=== PATIENT | male | born 1960 | race African-American/Black ===

== ENCOUNTER 2019-05-04 15:42 | Observation (INO) | payer BC ==
[~2019-05-04] VITALS: Ht 175.3 cm; Wt 76.1 kg
[2019-05-04 16:52] LABS: BASO % 0.4 % (0.0-1.0); EOS # 0.3 10^3/uL (0.0-0.5); EOS % 4.9 % (0.0-3.0); HEMATOCRIT 43.4 % (42.0-52.0); LYMPH # 1.7 10^3/uL (1.5-5.0); LYMPH % 30.4 % (24.0-44.0); MEAN CORPUSCULAR HEMOGLOBIN 26.7 pg (27.0-33.0); MEAN CORPUSCULAR HGB CONC 32.3 g/dl (32.0-36.5); MEAN CORPUSCULAR VOLUME 82.7 fl (80.0-96.0); MONO # 0.6 10^3/uL (0.0-0.8); MONO % 9.8 % (0.0-5.0); NEUTROPHILS # 3.1 10^3/uL (1.5-8.5); NEUTROPHILS % 54.3 % (36.0-66.0); PLATELET COUNT, AUTOMATED 227 10^3/uL (150-450); RED BLOOD COUNT 5.25 10^6/uL (4.30-6.10); WHITE BLOOD COUNT 5.7 10^3/uL (4.0-10.0)
[2019-05-04 17:03] LABS: INR 1.11; PARTIAL THROMBOPLASTIN TIME 26.7 SECONDS (25.0-38.4)
--- NOTE | 2019-05-04 17:19 | REPVR ---
PROCEDURE INFORMATION: Exam: US Duplex Left Lower Extremity Veins, Limited Exam date and time: 05/04/2019 4:59 PM Age: 58 years old Clinical indication: Swelling (edema) of limb; Lower extremity, left; Additional info: Swelling to lle R/O dvt TECHNIQUE: Imaging protocol: Real-time Duplex ultrasound of the Left Lower Extremity with 2-D acevedo scale, color Doppler flow and spectral waveform analysis with image documentation. Limited exam focused on the left lower extremity veins. COMPARISON: No relevant prior studies available. FINDINGS: Left deep veins: There is occlusive, noncompressible thrombus in the left common femoral and proximal femoral vein. Nonocclusive thrombus involves the mid to distal femoral and popliteal vein. In the calf, there is again occlusive thrombus in the popliteal vein. Left superficial veins: Not well demonstrated. Soft tissues: Unremarkable. IMPRESSION: Deep venous thrombus through the left lower extremity as described. Electronically signed by: Mike Chan On 05/04/2019 17:19:14 PM
[2019-05-04 17:31] LABS: ALT/SGPT 24 U/L (12-78); BLOOD UREA NITROGEN 12 MG/DL (7-18); CALCIUM LEVEL 9.5 MG/DL (8.5-10.1); CARBON DIOXIDE LEVEL 28 MEQ/L (21-32); CHLORIDE LEVEL 104 MEQ/L (98-107); CREATININE FOR GFR 1.01 MG/DL (0.70-1.30); GLOMERULAR FILTRATION RATE > 60.0 (>56); GLUCOSE, FASTING 260 MG/DL (70-100); POTASSIUM SERUM 3.8 MEQ/L (3.5-5.1); SODIUM LEVEL 138 MEQ/L (136-145)
[2019-05-04 17:32] LABS: ALBUMIN 3.5 GM/DL (3.2-5.2); BILIRUBIN,DIRECT 0.1 MG/DL (0.0-0.2); BILIRUBIN,TOTAL 0.4 MG/DL (0.2-1.0); CHOLESTEROL LEVEL 191 MG/DL (<200); CHOLESTEROL RISK RATIO 6.586 (<5); HDL CHOLESTEROL 29 MG/DL (>40); LDL CHOLESTEROL 126 MG/DL (<100); NON-HDL-C 162 MG/DL; NT-PRO BNP 25 PG/ML (<125); TOTAL PROTEIN 7.6 GM/DL (6.4-8.2); TRIGLYCERIDES LEVEL 179 MG/DL (<150)
--- NOTE | 2019-05-04 17:36 | ECGEPIP ---
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
[2019-05-04 17:40] LABS: D-DIMER QUANT > 4000 ng/ml (<500)
[2019-05-04 18:09] LABS: HEMOGLOBIN A1c 9.1 %
[2019-05-04] MEDS ORDERED: DEXTROSE 50% 50 ML SYRINGE IV PRN (18:15)
[2019-05-04] MEDS ORDERED: GLUCAGON FOR INJ 1 MG VIAL (J1610) SC PRN (18:15)
[2019-05-04] MEDS ORDERED: GLUCOSE 4 GM CHEW TABLET PO PRN (18:15)
[2019-05-04] MEDS: APIXABAN 5 MG TAB (ELIQUIS) PO SCH (18:45)
[2019-05-04] MEDS ORDERED: BRIM0.2S13 OU (18:49)
[2019-05-04] MEDS ORDERED: XALA0.007 OU (18:49)
[2019-05-04] MEDS ORDERED: DORZ2SOL5 OU (18:49)
[2019-05-04] MEDS: HumaLOG INSULIN (NovoLOG) PER UNIT SC SCH (21:00)
[2019-05-04 21:18] VITALS: BP 131/84
[2019-05-05 06:00] VITALS: BP 142/79
[2019-05-05 07:26] LABS: HEMOGLOBIN 13.8 g/dl (13.5-17.5); MEAN CORPUSCULAR HEMOGLOBIN 26.9 pg (27.0-33.0); MEAN CORPUSCULAR HGB CONC 32.9 g/dl (32.0-36.5); MEAN CORPUSCULAR VOLUME 81.9 fl (80.0-96.0); PLATELET COUNT, AUTOMATED 237 10^3/uL (150-450); RED BLOOD COUNT 5.13 10^6/uL (4.30-6.10); WHITE BLOOD COUNT 4.9 10^3/uL (4.0-10.0)
[2019-05-05 07:49] LABS: BLOOD UREA NITROGEN 10 MG/DL (7-18); CALCIUM LEVEL 9.6 MG/DL (8.5-10.1); CARBON DIOXIDE LEVEL 28 MEQ/L (21-32); CHLORIDE LEVEL 108 MEQ/L (98-107); CREATININE FOR GFR 0.93 MG/DL (0.70-1.30); GLOMERULAR FILTRATION RATE > 60.0 (>56); GLUCOSE, FASTING 175 MG/DL (70-100); POTASSIUM SERUM 3.7 MEQ/L (3.5-5.1); SODIUM LEVEL 140 MEQ/L (136-145)
[2019-05-05] MEDS: HumaLOG INSULIN (NovoLOG) PER UNIT SC SCH ×4 (08:46→21:00)
[2019-05-05] MEDS: APIXABAN 5 MG TAB (ELIQUIS) PO SCH ×2 (08:47→20:52)
[2019-05-05] MEDS: metFORMIN (GLUCOPHAGE) 500 MG TAB PO SCH ×2 (08:47→17:27)
--- NOTE | 2019-05-05 08:54 | HPE ---
DATE OF ADMISSION: 05/04/2019 The patient was admitted at approximately 6:00 p.m. CHIEF COMPLAINT: Left lower extremity pain and swelling. HISTORY OF PRESENT ILLNESS: Mr. Santoyo is a 58-year-old gentleman who has history of glaucoma as well as right lower extremity deep vein thrombosis (DVT) which occurred approximately ten years ago. He presents to the emergency room (ER) today with complaints of left lower extremity pain and swelling which has been ongoing for about a week. He denies having any trauma or any recent travel. The patient does not have a primary care provider. In the emergency department (ED), he was found to be normal cardiac without any relevant hypoxia. A lower extremity ultrasound did show yet extensive DVT involving the common femoral and popliteal veins. Due to the concern of the ED provider, the patient would not be able to be safely discharged due to not having a primary care provider (PCP) and findings of elevated blood sugars. He was admitted to an observation status for further treatment and evaluation. He is not having any shortness of breath. No chest discomfort. No dyspnea on exertion. No fatigue. ALLERGIES: No known drug allergies. MEDICATIONS: He takes no medications at home. PAST MEDICAL HISTORY: As outlined above. SURGICAL HISTORY: Relevant for eye surgery to treat glaucoma. SOCIAL HISTORY: He is unemployed. He does not use alcohol, tobacco or illicit drugs. He lives at home with his . His is his surrogate decision maker. He is a full code. FAMILY HISTORY: Relevant for glaucoma in his mother. REVIEW OF SYSTEMS: 12 systems reviewed with the patient and otherwise negative. PHYSICAL EXAMINATION: Today, the patient's temperature is 98.7, pulse 60 and regular, respirations 18, blood pressure 130/75, oxygen saturation 100% on room air. General: The patient is alert and oriented times three. He is an -[place]ian gentleman of [place] descent. He is resting comfortably with no visible distress. His head is atraumatic. His pupils are equal round and reactive to light. He has eye glasses in place. Oropharynx is clear. Neck is supple. No palpable lymphadenopathy. No thyromegaly. Lung sounds are appreciated. Without rales, wheezes or rhonchi. Heart: S1, S2. No murmurs, rubs or gallops. Abdomen is soft, nontender, nondistended, without any palpable organomegaly. Extremities: Left lower extremity is swollen compared to the right lower extremity. Tenderness to palpation with some mild edema. He has palpable dorsalis pedis pulses which are 2+ and symmetric. Neurologic Exam: Cranial nerves II-XII appear to be grossly intact. Speech is fluent. No facial asymmetry. LABORATORY DATA: White count 5.7, hemoglobin 14, hematocrit 43.4, platelet count 227. Sodium is 138, potassium 3.8, chloride 104, bicarbonate 28, anion gap 6, BUN 12, creatinine 1, glucose 260. Calcium is 9.5. AST is 14. ALT is 24. Glucose is 260. Hemoglobin A1c is 9.1%. TSH is 2. Cholesterol 191, LDL 126, HDL 162, total HCL 29. INR is 1.11. D-Dimer is greater than 4000. IMAGING STUDIES: Chest x-ray showed no acute disease. Lower extremity ultrasound showed a DVT in the left lower extremity. Please reference report for details. IMPRESSION: 1. Acute left lower extremity deep vein thrombosis. 2. New onset type 2 diabetes mellitus, poorly controlled with hyperglycemia and elevated A1c not at goal. PLAN: The patient will be admitted to observation and will be placed on Eliquis 10 mg twice a day for 7 days and there after 5 mg twice a day. In addition, will start him on metformin 500 mg twice a day. He will be placed on sliding scale and diabetic diet. Once safe arrangements are made for discharge, the patient can be discharged with close followup. The patient will be a full code. [facility]
[2019-05-05] MEDS: ACETAMINOPHEN TAB 650MG DOSE (2X325MG) PO PRN ×2 (08:59→18:16)
[2019-05-05] MEDS ORDERED: LISI-1046 PO (10:00)
[2019-05-05] MEDS ORDERED: ATOR1TAB21 PO (10:00)
[2019-05-05] MEDS ORDERED: ELIQ5TAB PO (10:00)
[2019-05-05] MEDS ORDERED: GLUC500T PO (10:00)
--- NOTE | 2019-05-05 10:15 | IPNPDOC ---
Subjective Date Seen The patient was seen on 05/05/19. Subjective Chief Complaint/HPI Tolerating eliquis and metformin. No complaints. LLE leg pain improved. Objective Physical Examination General Exam: Positive: Alert, No Acute Distress Eye Exam: Positive: PERRLA; Negative: Sclera icteric ENT Exam: Positive: Mucous membr. moist/pink, Pharynx Normal Neck Exam: Positive: Supple Chest Exam: Positive: Clear to auscultation Heart Exam: Positive: Rate Normal Abdomen Exam: Positive: Normal bowel sounds Extremity Exam: Positive: Edema (LLE) Skin Exam: Positive: Nl turgor and temperature; Negative: Rash Psych Exam: Positive: Mental status NL, Mood NL, Memory Intact; Negative: Anxiety Assessment /Plan Assessment # Acute LLE femoral and popliteal veins DVT - can be discharged home in am - will be moving to [place] in the next 1-2 weeks - eliquis 10 mg bid x total of 7 days, then 5 mg bid, script sent to pharmacy to verify copay - will need hypercoaguable workup as an outpatient # Newly diagnosed DM type 2 with hyperglycemia - metformin 500 mg bid - will need Diabetic education and supplies prior to discharge - F/u as outpatient # HTN - lisinopril 2.5 mg daily # Hyperlipidemia - 10 year [place] Cardiovascular Risk Score = 48.8% - Atorvastatin 20 mg qhs - baseline LFTs normal # Dispo: Home in am if reasonable copay for anticoagulant Plan/VTE VTE Prophylaxis Ordered?: Yes VS, I&O, 24H, Fishbone Vital Signs/I&O Vital Signs Date Time Temp Pulse Resp B/P (MAP) Pulse Ox O2 Delivery O2 Flow Rate FiO2 05/05/19 06:00 96.1 61 20 142/79 (100) 100 Room Air I&O- Last 24 Hours up to 6 AM 05/05/19 06:00 Intake Total 340 ml Output Total 250 ml Balance 90 ml Laboratory Data 24H LABS Laboratory Tests 2 05/04/19 16:25: Immature Granulocyte % (Auto) 0.2, Neutrophils (%) (Auto) 54.3, Lymphocytes (%) (Auto) 30.4, Monocytes (%) (Auto) 9.8H, Eosinophils (%) (Auto) 4.9H, Basophils (%) (Auto) 0.4, Neutrophils # (Auto) 3.1, Lymphocytes # (Auto) 1.7, Monocytes # (Auto) 0.6, Eosinophils # (Auto) 0.3, Basophils # (Auto) 0.0, Nucleated Red Blood Cells % (auto) 0.0, Prothrombin Time 14.0, Prothromb Time International Ratio 1.11, Activated Partial Thromboplast Time 26.7, D-Dimer, Quantitative > 4000H, Anion Gap 6L, Glomerular Filtration Rate > 60.0, Estimated Mean Plasma Glucose 214H, Hemoglobin A1c 9.1, Calcium Level 9.5, Total Bilirubin 0.4, Direct Bilirubin 0.1, Aspartate Amino Transf (AST/SGOT) 14, Alanine Aminotransferase (ALT/SGPT) 24, Alkaline Phosphatase 127H, KC-Oeu-T-Type Natriuretic Peptide 25, Total Protein 7.6, Albumin 3.5, Albumin/Globulin Ratio 0.85L, Triglycerides Level 179H, Total Cholesterol 191, LDL Cholesterol 126H, Non-HDL Cholesterol (LDL + VLDL) 162, Total HDL Cholesterol 29L, Cholesterol/HDL Ratio 6.586H, Thyroid Stimulating Hormone (TSH) 2.060 05/04/19 21:08: Bedside Glucose (Misc Panel) 198H 05/05/19 07:01: Nucleated Red Blood Cells % (auto) 0.0, Anion Gap 4L, Glomerular Filtration Rate > 60.0, Calcium Level 9.6 CBC/BMP Laboratory Tests 05/04/19 16:25 05/05/19 07:01 KIARA PHELPS MD May 05, 2019 10:15
[2019-05-05] MEDS: LISINOPRIL *2.5 MG* TAB PO SCH (12:53)
--- NOTE | 2019-05-05 13:12 | REP ---
REASON: Pitting edema. TWO-VIEW CHEST: COMPARISON: No priors. AP and lateral views were obtained. FINDINGS: The technique utilized in obtaining the radiograph has magnified the cardiac silhouette and accentuated the interstitial markings. The superior mediastinal structures are midline. The cardiac silhouette is unremarkable in size, shape, and position. The diaphragmatic surfaces of the lungs are regular, and the costophrenic angles are clear. The pulmonary potts are clear. The imaged osseous structures are intact. IMPRESSION: There is no acute cardiopulmonary disease. Electronically Signed by Francisco J Davenport DO 05/05/2019 01:23 P
[2019-05-05 15:03] VITALS: BP 139/78
[2019-05-05 17:45] VITALS: BP 125/81
[2019-05-05 20:00] VITALS: BP 122/79
[2019-05-05] MEDS ORDERED: ATORVASTATIN 20 MG TAB PO SCH (21:00)
[2019-05-05 21:18] LABS: APPEARANCE, URINE CLEAR (CLEAR); BACTERIA, URINE AUTO NEGATIVE (NEGATIVE); BILIRUBIN, URINE AUTO NEGATIVE (NEGATIVE); BLOOD, URINE BLOOD 1+ (NEGATIVE); COLOR, URINE YELLOW (YELLOW); GLUCOSE, URINE (UA) AUTO NEGATIVE (NEGATIVE); KETONE, URINE AUTO NEGATIVE (NEGATIVE); LEUKOCYTE ESTERASE, URINE AUTO NEGATIVE (NEGATIVE); MUCUS, URINE SMALL (NEGATIVE); NITRITE, URINE AUTO NEGATIVE (NEGATIVE); PROTEIN, URINE AUTO NEGATIVE (NEGATIVE); RBC, URINE AUTO 2 /HPF (0-3); SQUAMOUS EPITHELIAL CELL UR AU 0 /HPF (0-6); WBC, URINE AUTO 1 /HPF (0-3)
[2019-05-06 02:00] VITALS: BP 123/74
[2019-05-06] MEDS: ACETAMINOPHEN TAB 650MG DOSE (2X325MG) PO PRN (06:49)
[2019-05-06 08:00] VITALS: BP 143/79
[2019-05-06] MEDS: HumaLOG INSULIN (NovoLOG) PER UNIT SC SCH (08:17)
[2019-05-06] MEDS: metFORMIN (GLUCOPHAGE) 500 MG TAB PO SCH (08:17)
[2019-05-06] MEDS: APIXABAN 5 MG TAB (ELIQUIS) PO SCH (08:17)
[2019-05-06 08:18] VITALS: BP 149/78
[2019-05-06] MEDS: LISINOPRIL *2.5 MG* TAB PO SCH (08:18)
--- NOTE | 2019-05-06 10:18 | IPNPDOC ---
Subjective Date Seen The patient was seen on 05/06/19. Subjective Chief Complaint/HPI Mr. Santoyo is found sitting up on the edge of the bed eating his breakfast, he reports feeling well, and is ambulating without difficulty Objective Physical Examination General Exam: Positive: Alert, No Acute Distress Eye Exam: Positive: PERRLA; Negative: Sclera icteric ENT Exam: Positive: Mucous membr. moist/pink Neck Exam: Positive: Supple Chest Exam: Positive: Clear to auscultation Heart Exam: Positive: Rate Normal Abdomen Exam: Positive: Normal bowel sounds Extremity Exam: Positive: Edema (LLE) Skin Exam: Positive: Nl turgor and temperature; Negative: Rash Neuro Exam: Positive: Normal Gait Psych Exam: Positive: Mood NL, Memory Intact; Negative: Anxiety Assessment /Plan Assessment # Acute LLE femoral and popliteal veins DVT - home today - will be moving to [place] in the next 1-2 weeks - eliquis 10 mg bid x total of 7 days, then 5 mg bid, script sent to pharmacy to verify copay - will need hypercoaguable workup as an outpatient # Newly diagnosed DM type 2 with hyperglycemia - metformin 500 mg bid - Diabetic education and script for diabetic supplies prior to discharge - F/u as outpatient in 1 week # HTN - lisinopril 2.5 mg daily # Hyperlipidemia - 10 year [place] Cardiovascular Risk Score = 48.8% - Atorvastatin 20 mg qhs - baseline LFTs normal # Dispo: Home today following diabetic teaching Plan/VTE VTE Prophylaxis Ordered?: Yes VS, I&O, 24H, Fishbone Vital Signs/I&O Vital Signs Date Time Temp Pulse Resp B/P (MAP) Pulse Ox O2 Delivery O2 Flow Rate FiO2 05/06/19 08:18 149/78 05/06/19 08:00 97.1 55 18 100 Room Air I&O- Last 24 Hours up to 6 AM 05/06/19 06:00 Intake Total 2250 ml Output Total 0 ml Balance 2250 ml Laboratory Data 24H LABS Laboratory Tests 2 05/05/19 12:12: Bedside Glucose (Misc Panel) 138H 05/05/19 17:19: Bedside Glucose (Misc Panel) 167H 05/05/19 20:45: Bedside Glucose (Misc Panel) 164H 05/05/19 21:00: Urine Color YELLOW, Urine Appearance CLEAR, Urine pH 6.0, Urine Specific [place] 1.020, Urine Protein NEGATIVE, Urine Glucose (Auto)(UA) NEGATIVE, Urine Ketones (Auto) NEGATIVE, Urine Blood 1+H, Urine Nitrite NEGATIVE, Urine Bilirubin NEGATIVE, Urine Urobilinogen 4.0H, Urine Leukocyte Esterase (Auto) NEGATIVE, Urine WBC (Auto) 1, Urine RBC (Auto) 2, Urine Hyaline Casts (Auto) 0, Urine Bacteria (Auto) NEGATIVE, Urine Squamous Epithelial Cells 0, Urine Mucus (Auto) SMALL, Urine Sperm (Auto) 05/06/19 07:45: Bedside Glucose (Misc Panel) 198H KIARA PHELPS MD May 06, 2019 10:18
--- NOTE | 2019-05-07 10:57 | DSES ---
DATE OF ADMISSION: 05/04/2019 DATE OF DISCHARGE: 05/06/2019 DISCHARGE DIAGNOSES: 1. Acute left lower extremity femoral and popliteal vein deep vein thrombosis (DVT). 2. Newly diagnosed diabetes mellitus type 2 with hyperglycemia. 3. Hypertension. 4. Hyperlipidemia. PROCEDURES PERFORMED DURING HOSPITALIZATION: None. CONSULTANTS: None. DISPOSITION: The patient is discharged home. LABS THAT NEED TO BE DONE IN THE OUTPATIENT SETTING: The patient will need a hypercoagulable panel workup to determine etiology of his deep vein thrombosis. DISCHARGE INSTRUCTIONS: The patient was instructed to take Eliquis 10 mg twice a day for the next five days, which would be a total of seven, including the two that he received in the hospital. Then he is to take 5 mg twice a day. He is to continue Eliquis until instructed to discontinue per his outpatient provider. He is also to take low dose lisinopril 2.5 mg daily and metformin 500 mg by mouth daily. He is to check his blood sugars at least once a day. He is to followup with his primary care provider next week for ongoing outpatient diabetic care, education and counseling. CONDITION ON DISCHARGE: Improved. RELEVANT LABS OBTAINED DURING HOSPITALIZATION: White blood cell count 4.9, hemoglobin 13.8, hematocrit 42, platelet count is 237. PT is 14, INR is 1.11. D-Dimer is greater than 4000. Sodium is 140, potassium 3.7, chloride 108, bicarb 28, BUN 10, creatinine 0.93, glucose 175, hemoglobin A1c was 9.1%, calcium was 9.6, AST is 14, ALT 24, alkaline phosphatase 127, triglycerides 179, total cholesterol 191, LDL is 126, total HDL is 29, TSH was 2.0. Urinalysis showed 1+ blood with 2 RBCs and positive urobilinogen. RELEVANT IMAGIN. Left lower extremity venous duplex ultrasound showed occlusive noncompressible thrombus of the left common femoral and proximal femoral vein, nonocclusive thrombus involving the mid to distal femoral and popliteal vein. In the calf there is again occlusive thrombus in the popliteal vein. The left superficial vein was not well demonstrated. Soft tissue is unremarkable. 2. His chest x-ray showed no acute cardiopulmonary disease or mass. DISCHARGE MEDICATIONS: - Eliquis 10 mg twice a day for the next five days, then 5 mg twice a day thereafter. - atorvastatin 20 mg at bedtime - lisinopril 2.5 mg by mouth daily - metformin 500 mg twice a day - brimonidine tartrate one drop both eyes three times a day - dorzolamide timolol one drop both eyes twice a day - Xalatan one drop both eyes at bedtime The patient has also been provided a script for a Glucometer as well as for diabetic supplies consisting of lancets and test strips. 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 He presented to the hospital with complaint of left lower extremity swelling and pain, which have been going on for a week. He denied any trauma to that leg, could not give any definitive recent travel history or other provoking etiology. He was also found to have a blood sugar in excess of 200. He has not been taking any medications at home. A left lower extremity venous duplex ultrasound done in the ER department indicated he had a DVT. He was subsequently admitted to the hospitalist service for further treatment and evaluation. There was concern about his safety and not having a physician in the outpatient setting. The patient also needed regulation of his blood sugars with new onset of diabetes. He was admitted to observation status. He was started on Eliquis 10 mg twice a day. He received two days worth in the hospital of this medication. He was placed on metformin 500 mg twice a day. His [place] 10 year cardiovascular risk score was calculated at just under 50%. Therefore, he was started on atorvastatin and he was also noted to be hypertensive and started on low dose lisinopril. He has tolerated these medications all well without any allergic or adverse reaction. Today, his copay has been verified by patient and family services (PFS) and he has received diabetic teaching at the bedside completed by his nurse and will be discharged today in stable condition with instructions to followup with a primary care provider in the next week for ongoing medical care as an outpatient. A total of 30 minutes was spent completing all discharge paperwork.
== END 2019-05-06 12:45 | disposition home or self-care (01) ==
LOC: M ED 15:42 → M ED INP 15:43 → ENRESERVDT 19:12 → ENRESERVTM 19:12 → M MS5PR 20:30 → M PED 05-05 17:33
PROVIDERS: ADMIT Internal Medicine; ATTEND Internal Medicine
DX: I82.412 Acute embolism and thrombosis of left femoral vein (principal); I82.432 Acute embolism and thrombosis of left popliteal vein; I10 Essential (primary) hypertension; E11.65 Type 2 diabetes mellitus with hyperglycemia; Z79.899 Other long term (current) drug therapy; Z79.84 Long term (current) use of oral hypoglycemic drugs; Z79.01 Long term (current) use of anticoagulants

== ENCOUNTER → 2019-09-03 | Outpatient (REF) | payer BC ==
[~2019-09-03] MED LIST: ATOR1TAB21 PO; BRIM0.2S13 OU; DORZ2SOL5 OU; ELIQ5TAB PO; GLUC500T PO; LISI2.5T2 PO; XALA0.007 OU
[2019-09-03 19:57] LABS: HEMATOCRIT 47.2 % (42.0-52.0); HEMOGLOBIN 14.9 g/dl (13.5-17.5); MEAN CORPUSCULAR HEMOGLOBIN 26.3 pg (27.0-33.0); MEAN CORPUSCULAR HGB CONC 31.6 g/dl (32.0-36.5); MEAN CORPUSCULAR VOLUME 83.2 fl (80.0-96.0); PLATELET COUNT, AUTOMATED 207 10^3/uL (150-450); RED BLOOD COUNT 5.67 10^6/uL (4.30-6.10); WHITE BLOOD COUNT 5.4 10^3/uL (4.0-10.0)
[2019-09-03 20:04] LABS: HEMOGLOBIN A1c 9.3 %
[2019-09-03 20:27] LABS: MALB URINE SIEMENS 7.1 MG/L; MAU/CREAT RATIO 5.5 MCG/MG (0.0-30.0)
[2019-09-03 20:30] LABS: ALBUMIN 3.7 GM/DL (3.2-5.2); ALT/SGPT 38 U/L (12-78); BILIRUBIN,TOTAL 0.3 MG/DL (0.2-1.0); BLOOD UREA NITROGEN 15 MG/DL (7-18); CALCIUM LEVEL 9.9 MG/DL (8.5-10.1); CARBON DIOXIDE LEVEL 25 MEQ/L (21-32); CHLORIDE LEVEL 107 MEQ/L (98-107); CREATININE FOR GFR 1.14 MG/DL (0.70-1.30); GLOMERULAR FILTRATION RATE > 60.0 (>56); GLUCOSE, FASTING 245 MG/DL (70-100); POTASSIUM SERUM 4.2 MEQ/L (3.5-5.1); SODIUM LEVEL 140 MEQ/L (136-145); TOTAL PROTEIN 7.7 GM/DL (6.4-8.2)
[2019-10-18 12:04] LABS: ANTI THROMBIN 3 ANTIGEN IMMUNO See Separate Report % NORMAL
[2019-10-18 12:05] LABS: FACTOR II PROTHROMBIN GENE AN See Separate Report; PROTEIN C ANTIGEN See Separate Report
[2019-10-18 12:06] LABS: FACTOR V LEIDEN FOR MEDINET See Separate Report
[2019-10-18 12:08] LABS: ANTI THROMBIN 3 FUNCT ACTIVITY See Separate Report % NORMAL; PROTEIN S ANTIGEN FREE See Separate Report; PROTEIN S ANTIGEN TOTAL See Separate Report
== END ==
LOC: M SFHCPLAZ 14:34
PROVIDERS: ATTEND Nurse Practitioner Family
DX: E11.65 Type 2 diabetes mellitus with hyperglycemia (principal); Z86.718 Personal history of other venous thrombosis and embolism

== ENCOUNTER → 2019-11-29 | Outpatient (REF) | payer MEDICAID, OTHER ==
[2019-11-29 14:46] LABS: ALBUMIN 4.1 GM/DL (3.2-5.2); ALT/SGPT 32 U/L (12-78); BILIRUBIN,TOTAL 0.8 MG/DL (0.2-1.0); BLOOD UREA NITROGEN 14 MG/DL (7-18); CALCIUM LEVEL 10.3 MG/DL (8.8-10.2); CARBON DIOXIDE LEVEL 29 MEQ/L (21-32); CHLORIDE LEVEL 103 MEQ/L (98-107); CHOLESTEROL LEVEL 237 MG/DL (<200); CHOLESTEROL RISK RATIO 5.642 (<5); CREATININE FOR GFR 1.02 MG/DL (0.70-1.30); GLOMERULAR FILTRATION RATE > 60.0 (>49); GLUCOSE, FASTING 132 MG/DL (70-100); HDL CHOLESTEROL 42 MG/DL (>40); LDL CHOLESTEROL 175 MG/DL (<100); NON-HDL-C 195 MG/DL; POTASSIUM SERUM 4.4 MEQ/L (3.5-5.1); SODIUM LEVEL 139 MEQ/L (136-145); TOTAL PROTEIN 8.2 GM/DL (6.4-8.2); TRIGLYCERIDES LEVEL 98 MG/DL (<150)
[2019-11-29 14:55] LABS: MALB URINE SIEMENS 52.5 MG/L; MAU/CREAT RATIO 18.1 MCG/MG (0.0-30.0)
[2019-11-29 14:57] LABS: HEMOGLOBIN A1c 7.9 %
== END ==
LOC: M SFHCPLAZ 11:41
PROVIDERS: ATTEND Nurse Practitioner Family
DX: E11.65 Type 2 diabetes mellitus with hyperglycemia (principal); E78.2 Mixed hyperlipidemia; Z79.84 Long term (current) use of oral hypoglycemic drugs

== ENCOUNTER → 2020-02-28 | Outpatient (REF) | payer OTHER, MEDICAID ==
[2020-02-28 14:34] LABS: ALBUMIN 4.2 GM/DL (3.2-5.2); ALT/SGPT 36 U/L (12-78); BILIRUBIN,TOTAL 0.5 MG/DL (0.2-1.0); BLOOD UREA NITROGEN 14 MG/DL (7-18); CALCIUM LEVEL 9.8 MG/DL (8.8-10.2); CARBON DIOXIDE LEVEL 30 MEQ/L (21-32); CHLORIDE LEVEL 106 MEQ/L (98-107); GLOMERULAR FILTRATION RATE > 60.0 (>49); GLUCOSE, FASTING 156 MG/DL (70-100); POTASSIUM SERUM 4.2 MEQ/L (3.5-5.1); SODIUM LEVEL 140 MEQ/L (136-145); TOTAL PROTEIN 7.7 GM/DL (6.4-8.2)
[2020-02-28 14:44] LABS: MALB URINE SIEMENS 32.8 MG/L; MAU/CREAT RATIO 11.4 MCG/MG (0.0-30.0)
[2020-02-28 15:37] LABS: HEMOGLOBIN A1c 7.5 %
== END ==
LOC: M SFHCPLAZ 11:25
PROVIDERS: ATTEND Nurse Practitioner Family
DX: E11.65 Type 2 diabetes mellitus with hyperglycemia (principal)

== ENCOUNTER → 2020-05-04 | Outpatient (REF) | payer OTHER, MEDICAID ==
[2020-05-04 13:47] LABS: ALBUMIN 4.4 GM/DL (3.2-5.2); ALT/SGPT 43 U/L (12-78); BILIRUBIN,TOTAL 0.7 MG/DL (0.2-1.0); BLOOD UREA NITROGEN 16 MG/DL (7-18); CALCIUM LEVEL 10.6 MG/DL (8.8-10.2); CARBON DIOXIDE LEVEL 28 MEQ/L (21-32); CHLORIDE LEVEL 108 MEQ/L (98-107); CHOLESTEROL LEVEL 156 MG/DL (<200); CHOLESTEROL RISK RATIO 3.804 (<5); CREATININE FOR GFR 1.18 MG/DL (0.70-1.30); GLOMERULAR FILTRATION RATE > 60.0 (>49); GLUCOSE, FASTING 146 MG/DL (70-100); HDL CHOLESTEROL 41 MG/DL (>40); LDL CHOLESTEROL 96 MG/DL (<100); NON-HDL-C 115 MG/DL; POTASSIUM SERUM 4.1 MEQ/L (3.5-5.1); SODIUM LEVEL 138 MEQ/L (136-145); TOTAL PROTEIN 8.4 GM/DL (6.4-8.2); TRIGLYCERIDES LEVEL 94 MG/DL (<150)
[2020-05-04 13:59] LABS: MALB URINE SIEMENS 31.3 MG/L; MAU/CREAT RATIO 12.7 MCG/MG (0.0-30.0)
[2020-05-04 14:27] LABS: HEMOGLOBIN A1c 8.8 %
== END ==
LOC: M PLALAB 11:33
PROVIDERS: ATTEND Nurse Practitioner Family
DX: E11.65 Type 2 diabetes mellitus with hyperglycemia (principal); E78.2 Mixed hyperlipidemia

== ENCOUNTER → 2020-08-18 | Outpatient (CLI) | payer OTHER ==
[2020-08-18 14:05] LABS: HEMOGLOBIN A1c 7.6 %
[2020-08-18 14:06] LABS: ALT/SGPT 30 U/L (12-78); BILIRUBIN,TOTAL 0.7 MG/DL (0.2-1.0); BLOOD UREA NITROGEN 15 MG/DL (7-18); CALCIUM LEVEL 10.4 MG/DL (8.8-10.2); CARBON DIOXIDE LEVEL 25 MEQ/L (21-32); CHLORIDE LEVEL 109 MEQ/L (98-107); CREATININE FOR GFR 1.16 MG/DL (0.70-1.30); GLOMERULAR FILTRATION RATE > 60.0 (>49); GLUCOSE, FASTING 128 MG/DL (70-100); MAGNESIUM LEVEL 2.1 MG/DL (1.8-2.4); POTASSIUM SERUM 3.7 MEQ/L (3.5-5.1); SODIUM LEVEL 142 MEQ/L (136-145); TOTAL PROTEIN 7.9 GM/DL (6.4-8.2)
== END ==
LOC: M PLALAB 11:19
PROVIDERS: ATTEND Nurse Practitioner Family
DX: E11.65 Type 2 diabetes mellitus with hyperglycemia (principal)